=== PATIENT | female | born 1925 | race Caucasian/White ===

== ENCOUNTER 2017-01-13 18:31 | Inpatient (IN) | payer MEDICARE ==
[~2017-01-13] VITALS: Ht 152.4 cm; Wt 79.4 kg
[2017-01-13 19:26] LABS: BASOPHILS 0.7 % (0-2); HEMATOCRIT 36.4 % (36.0-48.0); HEMOGLOBIN 12.1 g/dL (12-16); IMMATURE GRANULOCYTES 0.4 % (0-5); LYMPHOCYTES 9.7 % (15-50); MCH 28.3 pg (26.0-34.0); MCHC 33.2 g/dL (31.0-37.0); MEAN PLATELET VOLUME 8.8 fL (7.4-10.4); MONOCYTES 9.5 % (2-11); NEUTROPHILS 77.7 % (40-80); RBC 4.28 10x6/uL (4.00-5.40); RDW 14.8 % (11.5-14.5); WBC 5.6 10x3/uL (4.8-10.8)
[2017-01-13 19:55] LABS: ALBUMIN 3.5 g/dL (3.4-5.0); ANION GAP 15.6 mmol/L (8-16); BILIRUBIN - TOTAL 1.02 mg/dL (0.2-1.3); CALCIUM 8.4 mg/dL (8.5-10.1); CARBON DIOXIDE 23.7 mmol/L (21.0-32.0); CREATININE - SERUM 0.8 mg/dL (0.6-1.3); POTASSIUM - SERUM 3.3 mmol/L (3.5-5.1); PROTEIN - SERUM 7.9 g/dL (6.4-8.2)
[2017-01-13 20:00] VITALS: BP 119/70
[2017-01-13 20:03] LABS: PLATELET COUNT 189 10x3/uL (130-400)
[2017-01-13 20:18] LABS: APPEARANCE HAZY (CLEAR); BILIRUBIN NEGATIVE (NEGATIVE); COLOR YELLOW (YELLOW); GLUCOSE NEGATIVE (NEGATIVE); KETONE NEGATIVE (NEGATIVE); LEUKOCYTE ESTERASE 2+ (NEGATIVE); NITRITE POSITIVE (NEGATIVE); PROTEIN NEGATIVE (NEGATIVE); UROBILINOGEN NORMAL (NORMAL)
[2017-01-13 20:19] LABS: BACTERIA MANY /hpf (NONE SEEN); EPITHELIAL CELLS 0-5 /hpf (0-5); RED CELLS - URINE 0-5 /hpf (0-5); WHITE CELLS - URINE >50 /hpf (0-5)
--- NOTE | 2017-01-13 21:30 | NUR ---
RECIEVED TO ROOM 2232 FROM ER VIA STRETCHER SALINE LOCK NOTED TO RIGHT FORARM. NO ACUTE DISTRESS NOTED HAS VERY STRONG URINE SMELL. PT ADMITTING DIAGNOSIS NOTED TO BE POLYNEPHRITIS. PT AWAKE AND ALERT ORIENTED X 3 GRAND DAUGHTER AT SIDE.
[2017-01-13] MEDS ORDERED: BUMETANIDE0.5 MG PO (21:32)
[2017-01-13 23:20] VITALS: BMI 34.2
[2017-01-14] VITALS: BP 100/46
[2017-01-14 04:00] VITALS: BP 135/48
--- NOTE | 2017-01-14 05:11 | NUR ---
PT RESTING WELL IN BED NO DISTRESS NOTED CALL LIGHT INREACH SIDE RAILS UP X 2
--- NOTE | 2017-01-14 07:40 | NUR ---
ASSESSMENT PER FLOW SHEET.PT WITHOUT DISTRESS.FALL PREVENTION IN PLACE WITH LILIAM MAT.DOOR OPEN TO MONITOR.CALL LIGHT IN REACH
[2017-01-14 08:42] VITALS: BP 104/44
[2017-01-14 12:19] VITALS: BP 112/48
--- NOTE | 2017-01-14 13:00 | NUR ---
LYING IN BED,WITHOUT DISTRESS.FALL PREVENTION IN PLACE.DOOR OPEN
[2017-01-14 13:03] VITALS: Ht 152.4 cm; Wt 79.4 kg
--- NOTE | 2017-01-14 14:35 | NUR ---
REMAINS WITHOUT NEEDS.DOOR OPEN,FALL PREVENTION IN PLACE.
[2017-01-14 16:28] VITALS: BP 129/45
--- NOTE | 2017-01-14 18:23 | NUR ---
REMAINS WITHOUT NEEDS,WITHOUT DISTRESS.CONT PLAN OF CARE
[2017-01-14 20:00] VITALS: BP 109/55
[2017-01-15] VITALS: BP 107/51
--- NOTE | 2017-01-15 02:43 | NUR ---
INCONTINENCE, CLEAN AND CHANGE GOWN AND LINEN.
--- NOTE | 2017-01-15 02:45 | NUR ---
REST QUIETLY IN BED, BED LOW, EYE CLOSE, CALL LIGHT WITHIN REACH.
[2017-01-15 04:00] VITALS: BP 115/56
--- NOTE | 2017-01-15 04:22 | NUR ---
PT WAS INCONT. AND THE NURSE AND [employer] CONSULTANT WERE BOTH IN THE ROOM CLEANING HER UP. NO DISTRESS NOTED AND PT HAS BEEN TURNED DURING THE NIGHT PER PROTOCOL
[2017-01-15 05:34] LABS: BASOPHILS 0.5 % (0-2); EOSINOPHILS 4.3 % (0-7); HEMOGLOBIN 11.2 g/dL (12-16); IMMATURE GRANULOCYTES 0.3 % (0-5); LYMPHOCYTES 16.4 % (15-50); MCH 27.9 pg (26.0-34.0); MCHC 32.9 g/dL (31.0-37.0); MCV 84.6 fL (80.0-100.0); MEAN PLATELET VOLUME 9.1 fL (7.4-10.4); MONOCYTES 10.1 % (2-11); NEUTROPHILS 68.4 % (40-80); PLATELET COUNT 168 10x3/uL (130-400); RBC 4.02 10x6/uL (4.00-5.40)
[2017-01-15 05:54] LABS: ANION GAP 9.7 mmol/L (8-16); C-REACTIVE PROTEIN 11.5 mg/dL (0.0-0.9); CARBON DIOXIDE 27.3 mmol/L (21.0-32.0); CREATININE - SERUM 0.9 mg/dL (0.6-1.3)
--- NOTE | 2017-01-15 07:45 | NUR ---
ASSESSMENT PER FLOW SHEET.PT WITHOUT DISTRESS. BLE EDEMA.VERY DRY SKIN ON LOWER LEGS AND FEET. WHEEZES HEARD THROUGHOUT LUNG MONAE.REDNESS NOTED TO BUTTOCKS WITHOUT BREAKDOWN.FALL PREVENTION IN PLACE WITH LILIAM MAT ON.DOOR OPEN
[2017-01-15 09:12] VITALS: BP 99/39
[2017-01-15 12:31] VITALS: BP 93/44
[2017-01-15 16:33] VITALS: BP 123/71
--- NOTE | 2017-01-15 19:24 | NUR ---
PT LYING IN BED WITH EYES OPEN DIRECTED AT TELEVISION, EVEN RISE AND FALL OF CHEST. NO SIGNS OF DISTRESS. BED IN LOW POSITION, CALL LIGHT WITHIN REACH. CONTINUE WITH PLAN OF CARE
--- NOTE | 2017-01-15 19:32 | NUR ---
REMAINS WITHOUT CHANGE FORM INITIAL ASSESSMENT.CONT PLAN OF CARE
[2017-01-15 20:00] VITALS: BP 102/67
--- NOTE | 2017-01-15 20:17 | NUR ---
PT IV INFILTRATED, RESITED IV TO LT FOREARM AND INITIATED ROCEPHIN DUE AT THE TIME. PT TOLERATED WELL, IN GOOD SPIRITS AND TALKED THROUGHOUT RESITING. NO OTHER NEEDS VOICED AT THE TIME
[2017-01-16] VITALS: BP 128/51
--- NOTE | 2017-01-16 01:50 | NUR ---
PT LYING ON BACK WITH EYES CLOSED. EVEN FALL AND RISE OF CHEST, NO SIGNS OF DISTRESS, IV PATENT, CLEAN, DRY AND INTACT. BED IN LOW POSITION, CALL LIGHT IN REACH. CONTINUE WOTH PLAN OF CARE
--- NOTE | 2017-01-16 02:00 | NUR ---
PT IN BED WITH NO DISTRESS. RESPIRATIONS EVEN AND UNLABORED. SIDE RAILS X 2. BED IS LOW. CALL LIGHT IN REACH.
[2017-01-16 04:00] VITALS: BP 126/81
--- NOTE | 2017-01-16 07:50 | NUR ---
PT AOX4 RESP EVEN AND NONLABORED PT DENIES NEEDS AT THIS TIME IV TO LEFT AC PATENT AND INTACT AT THIS TIME SRX2 BED AT LOWEST SETTING CALL LIGHT WITHIN REACH WILL CONTINUE TO MONITOR
[2017-01-16 09:13] VITALS: BP 118/79
--- NOTE | 2017-01-16 10:01 | NUR ---
Patient Name: SERGE DELEON Admission Status: ER Accout number: [id number] Admission Date: 01-13-2017 : 1925 Admission Diagnosis: Attending: NYDIA Current LOS: 3 Anticipated DC Date: 01-18-2017 Planned Disposition: Home with Home Health Primary Insurance: MEDICARE A & B Discharge Planning Comments: CM MET WITH PATIENT REGARDING D/C NEEDS AND PLANS. PATIENT STATED HER DAUGHTER (ALONSO) LIVES WITH HER AND HELPS WHEN NEEDED. THERE ARE NO STEPS OR STAIRS AT HER HOME. PATIENTS GRANDDAUGHTER (AMELIA) WILL HAVE HER BOYFRIEND DRIVE PATIENT HOME AT DISCHARGE. PATIENT STATED SHE IS INDEPENDENT AT HOME AND HAS A WALKER, WHEELCHAIR, SHOWER CHAIR, AND BS COMMODE. PATIENTS PCP IS DR. ANDRE ALMANZA AND USES [facility]. PATIENT SIGNED THE JANINE FORM WITH [facility] WHEN DISCHARGED. CM WILL CONTINUE TO FOLLOW PATIENT WITH D/C NEEDS AND PLANS. PCP DR. ANDRE ALMANZA [facility]- [phone] ALONSO LI (DAUGHTER) [phone] [facility]- [phone] Associate Quality Engineer: Ashley Chisholm Is the patient Alert and Oriented? Yes 0 * How many steps to enter\exit or inside your home? 0 0 * PCP DR. ANDRE ALMANZA 0 * Pharmacy [facility] 0 * Preadmission Environment Home with Family 0 * ADLs Independent 0 * Equipment Bedside Commode Shower Chair Walker Wheelchair 0 * List name and contact numbers for known caregivers / representatives who currently or will assist patient after discharge: ALONSO MCNULTY (DAUGHTER) [phone] * Community resources currently utilized None 0 * Can the patient safely return to the preadmission environment? Yes 0 * Has this patient been hospitalized within the prior 30 days at any hospital? No 0 Grand Total: 0
[2017-01-16 10:47] LABS: ALBUMIN 2.9 g/dL (3.4-5.0); ANION GAP 12.1 mmol/L (8-16); BILIRUBIN - TOTAL 0.59 mg/dL (0.2-1.3); CALCIUM 8.3 mg/dL (8.5-10.1); CARBON DIOXIDE 26.6 mmol/L (21.0-32.0); CREATININE - SERUM 0.9 mg/dL (0.6-1.3); PROTEIN - SERUM 7.3 g/dL (6.4-8.2)
[2017-01-16 10:52] LABS: POTASSIUM - SERUM 2.7 mmol/L (3.5-5.1)
[2017-01-16 10:58] LABS: BASOPHILS 0.5 % (0-2); EOSINOPHILS 6.7 % (0-7); IMMATURE GRANULOCYTES 0.3 % (0-5); LYMPHOCYTES 18.8 % (15-50); MCHC 33.3 g/dL (31.0-37.0); MCV 84.1 fL (80.0-100.0); MEAN PLATELET VOLUME 9.4 fL (7.4-10.4); MONOCYTES 10.3 % (2-11); NEUTROPHILS 63.4 % (40-80); PLATELET COUNT 189 10x3/uL (130-400); RBC 4.28 10x6/uL (4.00-5.40); RDW 14.9 % (11.5-14.5); WBC 3.9 10x3/uL (4.8-10.8)
[2017-01-16] MEDS ORDERED: K-TAB10 MEQ PO (12:41)
[2017-01-16] MEDS ORDERED: LEVAQUIN750 MG PO (12:42)
[2017-01-16 13:03] VITALS: BP 149/82
--- NOTE | 2017-01-16 13:08 | NUR ---
CM REASSESSMENT NOTE: PATIENT IS DISCHARGING HOME TODAY/GRANDDAUGHTER AND BOYFRIEND COMING TO DRIVE PATIENT HOME. [facility] REFERRAL SENT/PATIENT HAD NO OTHER NEEDS FOR D/C IMM SIGNED
[2017-01-16 15:10] VITALS: BP 136/70
--- NOTE | 2017-01-16 19:08 | NUR ---
PT SITTING UP IN BED HAS POTASSIUM RUNNING, PT IS EAGER TO GET HOME, REINFORCED IMPORTANCE OF HAVING POTASSIUM COMPLETED AND BLOOD SERUM RUN. BED IN LOW POSITION, CALL LIGHT IN REACH , NO SIGNS OF DISTRESS
[2017-01-16 20:00] VITALS: BP 128/64
--- NOTE | 2017-01-16 22:00 | NUR ---
PT AND FAMILY IN PT ROOM WAITING ON D/C. EXPLAINED STILL WAITING ON RESULTS OF POTASSIUM SERUM. REMOVED PT IV, SITE IS CLEAN AND DRY, PT VISITING W/ FAMILY. BED IN LOW POSITION CL IN REACH
== END 2017-01-16 21:30 | disposition home health service (06) | DRG 690 ==
LOC: D.ER 18:31 → D.MS 20:51
PROVIDERS: Emergency Medicine; Physician Assistant; ADMIT Family Medicine
DX: N10 Acute pyelonephritis (principal); R53.1 Weakness; R60.9 Edema, unspecified